=== PATIENT | male | born 1985 | race Caucasian/White ===

== ENCOUNTER 2024-10-05 09:12 | Emergency (ER) | payer BC ==
[2024-10-05] MEDS ORDERED: Ibuprofen 200 MG TAB ONE (09:38)
== END 2024-10-05 10:41 | disposition home or self-care (01) ==
LOC: CSHERS 09:12
DX: S86.022A Laceration of left Achilles tendon, initial encounter (principal); X50.1XXA Overexertion from prolonged static or awkward postures, initial encounter; Y93.67 Activity, basketball
CPT/HCPCS: 99283